=== PATIENT | male | born 1960 | race Caucasian/White ===

== ENCOUNTER 2017-12-08 16:06 | Emergency (ER) | payer OTHER ==
[~2017-12-08] VITALS: Ht 294.6 cm; Wt 70.8 kg
[2017-12-08] MEDS ORDERED: LEVSIN/SL0.125 MG PO (23:29)
[2017-12-08] MEDS ORDERED: CIPRO500 MG PO (23:29)
[2017-12-08] MEDS ORDERED: FLAGYL500MG PO (23:29)
[2017-12-08] MEDS ORDERED: KETO10TA2 PO (23:29)
[2017-12-08] MEDS ORDERED: PEPCID AC20 MG PO (23:29)
[2017-12-08] MEDS ORDERED: INTESTINEX680 M1 PO (23:29)
== END 2017-12-09 00:44 | disposition home or self-care (01) ==
LOC: ER 16:06 → EDSEX 16:16 → ER 16:16
DX: K57.92 Diverticulitis of intestine, part unspecified, without perforation or abscess without bleeding (principal); R10.32 Left lower quadrant pain

== ENCOUNTER 2019-11-13 08:47 | Outpatient (CLI) | payer OTHER ==
[~2019-11-13 08:47] MED LIST: CIPRO500 MG PO; FLAGYL500MG PO; INTESTINEX680 M1 PO; KETO10TA2 PO; LEVSIN/SL0.125 MG PO; PEPCID AC20 MG PO
== END 2019-11-13 08:53 | disposition home or self-care (01) ==
LOC: RAD 08:47
PROVIDERS: ATTEND Family Medicine
DX: M54.5 Low back pain (principal)

== ENCOUNTER 2019-12-18 10:12 | Outpatient (CLI) | payer OTHER | END 2019-12-18 10:25 | disposition home or self-care (01) | LOC: MRI 10:12 | PROVIDERS: ATTEND Family Medicine | DX: D18.09 Hemangioma of other sites (principal); M51.16 Intervertebral disc disorders with radiculopathy, lumbar region; G31.89 Other specified degenerative diseases of nervous system | CPT/HCPCS: 72148 ==

== ENCOUNTER 2021-03-01 18:44 | Emergency (ER) | payer OTHER ==
[~2021-03-01] VITALS: Ht 167.6 cm; Wt 72.1 kg
[2021-03-01] MEDS ORDERED: HYDRODIURIL12.5 MG (19:10)
[2021-03-01] MEDS ORDERED: RAMIPRIL5 MG (19:10)
== END 2021-03-02 00:18 ==
LOC: ER 18:44
DX: K14.8 Other diseases of tongue (principal)

== ENCOUNTER 2021-12-23 11:45 | Outpatient (CLI) | payer OTHER ==
[~2021-12-23 11:45] MED LIST changes: +HYDRODIURIL12.5 MG; +RAMIPRIL5 MG
== END 2021-12-23 11:53 | disposition home or self-care (01) ==
LOC: RAD 11:45
DX: M54.50 Low back pain, unspecified (principal); M25.551 Pain in right hip; M25.552 Pain in left hip

== ENCOUNTER 2022-04-29 09:56 | Outpatient (CLI) | payer OTHER | END 2022-04-29 10:10 | disposition home or self-care (01) | LOC: MRI 09:56 | PROVIDERS: ATTEND Orthopaedic Surgery | DX: M25.561 Pain in right knee (principal); M25.562 Pain in left knee; S83.201A Bucket-handle tear of unspecified meniscus, current injury, left knee, initial encounter | CPT/HCPCS: 73721 ==

== ENCOUNTER 2022-10-10 03:08 | Emergency (ER) | payer OTHER ==
[~2022-10-10] VITALS: Ht 167.6 cm; Wt 73.5 kg
== END 2022-10-10 10:28 | disposition home or self-care (01) ==
LOC: ER 03:08
DX: N20.1 Calculus of ureter (principal)

== ENCOUNTER 2023-02-07 10:21 | Outpatient (CLI) | payer OTHER | END 2023-02-07 10:29 | disposition home or self-care (01) | LOC: SONOGRAMA 10:21 | PROVIDERS: ATTEND Family Medicine | DX: R31.29 Other microscopic hematuria (principal) ==